=== PATIENT | female | born 1995 | race African-American/Black ===

== ENCOUNTER 2021-12-06 08:17 | Observation (INO) | payer OTHER, SELFPAY ==
[2021-12-06] VITALS (11 sets, daily range): BP systolic 111–215; BP diastolic 61–111; PULSE 92–103; RESP 16–24; TEMP 36.3–36.9; O2SAT 98–100; BMI 20.2
--- NOTE | 2021-12-06 | ECHO_ITS ---
Patient Info Name: Romy Cullen Age: 26 years : 1995 Gender: Female Ht: 61 in Wt: 110 lbs BSA: 1.47 m2 HR: 95 bpm BP: 173 / 99 mmHg Heart Rhythm: Sinus Rhythm Technical Quality: Fair Exam Date: 12/06/2021 11:47 AM Exam Location: [facility] Pulmonary Patient Status: Outpatient Admit Date: 12/06/2021 Staff Ordering Physician: Jacob James MD Refrigeration Mechanic: Anabell Oscar RDCS Attending Provider: Mariela Sellers Exam Type: CA echo doppler color flow Study Info Indications I31.3 - Pericardial effusion (noninflammatory) Complete two-dimensional, color flow and Doppler transthoracic echocardiogram is performed. Summary 1. Complete two-dimensional, color flow and Doppler transthoracic echocardiogram is performed. 2. Left ventricular chamber dimension is normal. 3. Left ventricular systolic function is normal, estimated at 60-65%. 4. There is moderately increased left ventricular wall thickness. 5. The left ventricular diastolic function is normal. 6. Left atrial chamber dimension is mildly enlarged. 7. There is trace mitral valve regurgitation. 8. There is trace tricuspid valve regurgitation. 9. Mild pulmonary hypertension, estimated pulmonary arterial systolic pressure is 49 mmHg. 10. There is trace pulmonic regurgitation. 11. There is small circumferential pericardial effusion. Left Ventricle Tissue doppler E/e' is not performed. Left ventricular chamber dimension is normal. Left ventricular systolic function is normal, estimated at 60-65%. There is moderately increased left ventricular wall thickness. The left ventricular diastolic function is normal. Right Ventricle Right ventricular systolic function is normal and with normal TAPSE 2.5 cm. Right ventricular chamber dimension is normal. Left Atria Left atrial chamber dimension is mildly enlarged. Right Atria Right atrial chamber dimension is normal. Aortic Valve The aortic valve is trileaflet. There is no aortic valve stenosis. There is no aortic valve regurgitation. Pulmonic Valve There is trace pulmonic regurgitation. Mitral Valve There is no mitral valve stenosis. There is trace mitral valve regurgitation. Tricuspid Valve There is trace tricuspid valve regurgitation. Mild pulmonary hypertension, estimated pulmonary arterial systolic pressure is 49 mmHg. Pericardium/Pleural No cardiac tamponade. There is small circumferential pericardial effusion. Inferior Vena Cava Normal inferior vena cava with >50% collapse upon inspiration consistent with normal right atrial pressure, 5 mmHg. Aorta The aortic root size at the sinus of Valsalva is normal. Left Ventricular Outflow Tract Name Value Normal LVOT 2D LVOT Diameter 1.7 cm LVOT Doppler LVOT Peak Gradient 5 mmHg LVOT Mean Gradient 2 mmHg LVOT VTI 20 cm LVOT VTI/AV VTI Ratio 0.6 LVOT Stroke Volume 47 ml LVOT CO 4.2 l/min LVOT CI
--- NOTE | ~2021-12-06 | XR_ITS ---
EXAMINATION: XR chest 2V 12/06/2021 13:44 INDICATION: Shortness of breath. Pericardial effusion. PROCEDURE: 2 view chest COMPARISON: CT dated 12/06/2020. FINDINGS: The lungs are clear. The cardiomediastinal silhouette is within normal limits. There are no pleural effusions. There is no pneumothorax suspected. IMPRESSION: 1: NO ACUTE CARDIOPULMONARY DISEASE. Reviewed, dictated and finalized at location A.
--- NOTE | ~2021-12-06 | CT_ITS ---
EXAMINATION: CT abdomen pelvis wo con DATE: 12/06/2021 09:23 INDICATION: Epigastric pain TECHNIQUE: Computed tomography (CT) of the abdomen and pelvis was performed without intravenous contr ast. The dose-length product was 170.55 mGy-cm. Automated exposure control and iterative reconstructi on technique were employed. COMPARISON: CT dated 03/19/2019. FINDINGS: Lung bases are unremarkable. Moderate pericardial effusion. Cardiomegaly. Small left pleura l effusion. The liver, spleen, pancreas, adrenal glands and kidneys are unremarkable. There are multiple calcific ations in the right pelvis which are likely outside the urinary tract. These may represent lymph node calcifications. Bladder wall is diffusely thickened, consistent with cystitis. There is a 2.8 cm rig ht adnexal cyst, possibly ovarian. No free air. Mild diffuse subcutaneous edema. No acute osseous abn ormality. IMPRESSION: 1. Moderate pericardial effusion. 2: Small left pleural effusion. 3: Diffuse abnormal bladder wall thickening, suspicious for cystitis. 4: Right adnexal cyst measuring 2.8 cm, possibly ovarian. 5: Right pelvic calcifications, possibly lymph node calcifications. These are likely outside the urin janeth tract, although urinary stones cannot be excluded. No significant hydronephrosis. Reviewed, dictated and finalized at location A. IMPRESSION: 1. Moderate pericardial effusion. 2: Small left pleural effusion. 3: Diffuse abnormal bladder wall thickening, suspicious for cystitis. 4: Right adnexal cyst measuring 2.8 cm, possibly ovarian. 5: Right pelvic calcifications, possibly lymph node calcifications. These are l ikely outside the urinary tract, although urinary stones cannot be excluded. No significant hydronephrosis.
--- NOTE | ~2021-12-06 | US_ITS ---
US renal BI 12/06/2021 14:09 Procedure: Realtime transabdominal ultrasound of the kidneys and bladder. Indication: Proteinuria Comparison: No prior studies for comparison. Findings: Renal echotexture is normal bilaterally without hydronephrosis, contour deforming mass or r enal calculus. The right kidney measures 11.8 cm and left kidney measures 12.3 cm. Bladder wall is th ickened, suspicious for cystitis. Impression: 1: Lateral wall thickening, suspicious for cystitis. Clinically correlate with urinalysis. Reviewed, dictated and finalized at location A. Impression: 1: Lateral wall thickening, suspicious for cystitis. Clinically correlate with urinalysis.
[2021-12-06 08:57] LABS: Alanine Aminotransferase 9 U/L (6-35); Albumin Level 2.8 g/dL (3.5-5.1); Alkaline Phosphatase 90 U/L (38-126); Anion Gap 6 mmol/L (8-16); Aspartate Amino Transferase 19 U/L (14-36); Bilirubin,Total 0.3 mg/dL (0.2-1.3); Blood Urea Nitrogen 25 mg/dL (7-17); Calcium 8.7 mg/dL (8.4-10.2); Carbon Dioxide 24 mmol/L (22-30); Chloride 107 mmol/L (98-107); Estimated CRCL calculation 41 ml/min; Estimated Glomerular Filt Rate 55; Glucose 86 mg/dL (65-110); Potassium 3.9 mmol/L (3.4-5.0); Sodium 137 mmol/L (137-145)
[2021-12-06 09:03] LABS: Lipase < 10 U/L (23-300)
[2021-12-06 09:04] LABS: Appearance Urine Clear (Clear); Bilirubin Urine Negative (Negative); Blood Urine 2+ (Negative); Color Urine Yellow (Yellow); Glucose Urine UA 3+ mg/dL (Negative); Ketones Urine 1+ mg/dL (Negative); Leukocyte Esterase Ur Negative LEU/UL (Negative); Nitrate Urine Negative (Negative); Protein Urine 3+ mg/dL (Negative); Urobilinogen Urine 0.2 mg/dL (<2.0)
[2021-12-06 09:05] LABS: Basophils Percent Auto 0.6 % (0.2-1.2); Eosinophils Absolute Auto 0.1 K/mm3 (0-0.3); Eosinophils Percent Auto 0.8 % (0-4.4); Hematocrit 23.4 % (37.0-47.0); Hemoglobin 7.7 g/dL (12.0-15.0); Immature Granulocyte Absolute 0.02 K/mm3 (0.00-0.031); Immature Granulocyte Percent A 0.3 % (0-0.5); Lymphocytes Absolute Auto 2.34 K/mm3 (0.9-3.2); Lymphocytes Percent Auto 32.5 % (18.3-44.2); Mean Corpuscular HGB Conc 32.9 g/dl (32-36); Mean Corpuscular Hemoglobin 29.7 pg (26-34); Mean Corpuscular Volume 90.3 fl (80-100); Mean Platelet Volume 8.4 fl (7.4-10.4); Monocytes Absolute Auto 0.5 K/mm3 (0.1-0.6); Monocytes Percent Auto 6.7 % (2.6-8.5); Neutrophils Absolute Auto 4.3 K/mm3 (1.3-6.7); Neutrophils Percent Auto 59.1 % (45.5-73.1); Platelet Count Result 358 k/mm3 (150-375); Red Blood Count 2.59 M/mm3 (4.2-5.4); Red Cell Distribution Width 14.5 % (11.5-14.5); White Blood Count 7.2 K/mm3 (4.5-10.0)
[2021-12-06 09:13] LABS: Mucus Urine Rare /lpf; Squamous Epithelial Cell Urine Many /hpf (Few); Transitional Epi Cells Urine Rare /hpf (None Seen); WBC Urine 0-3 /hpf
[2021-12-06 09:14] LABS: Add Urine Microscopic? YES
[2021-12-06] MEDS: SODIUM CHLORIDE 0.9% IV 1,000 ML 150 ML IV CONT (09:37)
[2021-12-06] MEDS: MORPHINE SULFATE (*CRX) 4 MG/ML INJ IV PUSH (09:38)
[2021-12-06] MEDS: ONDANSETRON INJ 4 MG/2 ML VIAL IV PUSH (09:38)
[2021-12-06] MEDS: FAMOTIDINE 20 MG/2 ML VIAL IV PUSH (09:38)
--- NOTE | 2021-12-06 10:44 | ECG_ITS ---
Measurements Intervals [place] Rate: 98 P: 52 NH: 138 QRS: 46 QRSD: 76 T: 61 QT: 335 QTc: 428 Interpretive Statements SINUS RHYTHM NORMAL EKG NO PREVIOUS ECG AVAILABLE FOR COMPARISON Electronically Signed On 12-06-2021 16:31:54 CDT by Evelyn Cristina M.D.
--- NOTE | 2021-12-06 10:58 | ED.ABDPAIN ---
HPI - Abdominal Pain General Chief Complaint: Abdominal Pain Stated Complaint: Nausea and abd pain Time Seen by Provider: 12/06/21 08:20 Source: patient Mode of arrival: ambulatory Limitations: no limitations History of Present Illness HPI narrative: 26-year-old with a history of insulin-dependent diabetes, diabetic nephropathy here with complaints of upper abdominal pain since last night. She denies any nausea, vomiting or fever or chills. No history of alcohol or drug abuse. She denies any peptic ulcer disease. No blood in the stool or black-colored stool. MD elicited complaint: abdominal pain Pertinent past history: none Onset (ago): day(s) (1) Pain Consistency: constant Location: epigastric Severity: moderate Quality: aching Radiation: none Migration to: no migration Exacerbating factors: nothing Relieving factors: nothing Associated symptoms: denies other symptoms Related Data Home Medications Medication Instructions Recorded Confirmed amlodipine 10 mg tablet mg 12/06/21 Allergies Allergy/AdvReac Type Severity Reaction Status Date / Time aspirin Allergy Intermediate Other Verified 12/06/21 08:19 Review of Systems Review of Systems: All systems reviewed & are unremarkable except as noted in HPI and below Constitutional: Constitutional: Reports no additional constitutional complaints Eyes: Eyes: Reports no additional eye complaints ENT: Reports system reviewed and no additional complaints, except as documented Cardiovascular: Cardiovascular: Reports no additional cardiovascular complaints Respiratory: Respiratory: Reports no additional respiratory complaints Gastrointestinal: Gastrointestinal: Reports as per HPI Genitourinary: Genitourinary: Reports no additional female genitourinary complaints Musculoskeletal: Musculoskeletal: Reports no additional musculoskeletal complaints Integumentary/Breasts: Skin/Breast: Reports system reviewed and no additional complaints, except as docu Neurologic: Reports system reviewed and no additional complaints, except as documented Psychiatric: Psychiatric: Reports no additional psychiatric complaints Endocrine: Endocrine: Reports no additional endocrine complaints PMFSH Past Medical History Medical History (Updated 12/06/21 @ 11:08 by Jacob James MD) Type 1 diabetes mellitus Social History Social History Smoking status: Never smoker Alcohol intake: never Substance use: never Gender identity (if verbalized by the patient): Female Spiritual care concerns: No Agree to blood products: No Exam Narrative: GENERAL: Well-appearing, well-nourished, and in no acute distress. HEAD: Normocephalic, atraumatic. EYES: PERRLA and EOMI. puffy eyelids NECK: Supple. CHEST: Clear to auscultation. No respiratory distress. HEART: Regular rate and rhythm. No murmur heard. Normal peripheral pulses. ABDOMEN: Soft, tender in the epigastric area , nondistended, normal active bowel sounds. EXTREMITIES: Normal range of motion. No edema. SKIN: Warm, dry, no rash. NEURO: No focal deficits. Alert and oriented x3. PSYCH: Normal mood and affect. Course Course Emergency Course: Patient is feeling slightly better after IV morphine, Zofran and Pepcid. I have reviewed her lab work did mention to her about her kidney function, patient states that she is aware , she states that she has protein in the urine and I did mention about her fluid around the heart which she said she was aware of that as well and is scheduled to see cardiology at [facility] sometime next month. Patient agreed for admission. Discussed with cardiology will patient will be seen in consult Dr. Serrano accepted the patient Vital Signs Vital signs: Vital Signs Temperature 36.9 C 12/06/21 08:17 Pulse Rate 101 H 12/06/21 08:17 Respiratory Rate 16 12/06/21 08:17 Blood Pressure 132/86 12/06/21 08:17 Pulse Oximetry 100 12/06/21 0
[2021-12-06 11:20] LABS: Troponin I < 0.012 ng/mL (0.000-0.034)
[2021-12-06 11:29] LABS: INR 1.1; Prothrombin Time 13.8 Seconds (11.1-14.7)
--- NOTE | 2021-12-06 12:35 | PC.NURSE ---
This patient, Romy Cullen, was admitted to IMU Room 213-01. Patient/family oriented to hospital policies and general routines including ID bracelet, bed and alarms, visiting hours, pain management, procedures, bathroom and other care routines, personal items, smoking policy, room service/diet, and visiting hours. Information on how to activate the Rapid Response Team has been discussed. Patient/Family are encouraged to report perceived risks to care and to ask questions if they do not understand what they are told or what they should do.
[2021-12-06 12:45] LABS: Glucose Point of Care 140 mg/dl (65-105)
[2021-12-06 12:59] LABS: Hemoglobin A1C 8.3 % (<5.7)
--- NOTE | 2021-12-06 13:19 | PM.IMHP ---
H&P: HPI History of Present Illness Date/Time: 12/06/21 1250 Chief Complaint: Abdominal Pain Narrative: This 26 year old female patient with significant PMH of T1DM, HTN, and Diabetic Nephropathy presents to the ER with complaints of having acute abdominal pain. She notes that the pain is in the middle of her upper abdomen, is constant in duration and began last night. She describes it as an ache with associated nausea. In addition she also endorses that her eyes have been swollen for the past 2 days. She also acknowledges swelling of her extremities that comes and goes, currently they are not swollen she denies any chest pain or dyspnea. She denies any change in her urine output with the appearance of her urine. In the emergency room workup was started his significant for hemoglobin of 7.7 which is not normal for this patient. The review of previous hemoglobin values from November 26, 2018 she was 12.0, 03/19/2019 she was 11.8, 03/21/2019 she was 9.2 and today she is 7.7. In addition patient's renal function has declined. He her baseline renal function in her history demonstrates a creatinine of 0.4, today she is 1.4 with her creatinine and BUN is 25. Her Urine Protein is 3+, where it was negative back in 03/19/2019, urine ketones is 1+, where it was negative in 2019, and she has 5-9 casts in her urine that was negative on previous UA's. Her current UA is not indicative of an acute UTI. CT of the abdomen pelvis demonstrated a moderate pericardial effusion with small left pleural effusion and diffuse abnormal bladder wall thickening suspicious for cystitis as well as a right adnexal cyst and right pelvic calcifications. Patient states that she is aware of her pericardial effusion and had an upcoming appointment with a customer service representative teacher at [facility] to discuss. In addition she was aware of increased proteinuria, however and she sees creative intern Dr. Castaneda at [facility]. As patient's urinalysis does not support the diagnosis of acute cystitis at this time imaging from 2019 of the abdomen and pelvis was reviewed that also demonstrated an abnormal bladder wall thickening at that time as well. She was currently being treated for an acute urinary tract infection then, however her vital signs are not indicating acute infection currently. 24 hour urine is ordered as well as urine culture. Specifically on CT of abdomen pelvis there are no pancreatic findings to suggest acute pancreatitis. Liver enzymes, bilirubin and lipase were all normal. At the time of this assessment, the patient denies any CP, dyspnea, V/D, headache, dizziness or lightheadedness. Review of Systems Review of Systems: All systems reviewed & are unremarkable except as noted in HPI and below PMFSH Past Medical History Medical History (Updated 12/06/21 @ 13:43 by OSWALDO Helm) Type 1 diabetes mellitus Social History Social History Smoking status: Never smoker Alcohol intake: never Substance use: never Gender identity (if verbalized by the patient): Female Spiritual care concerns: No Agree to blood products: No Meds Home Medications and Allergies Home Medications Medication Instructions Recorded Confirmed Type acetaminophen 325 mg tablet (Mapap 650 mg PO Q4H PRN Mild Pain (1-3) 03/21/19 12/06/21 Rx (acetaminophen)) Or Fever #60 tabs insulin glargine 100 unit/mL (3 12 unit (0.12 mL) subcut HS #3 mL 03/21/19 12/06/21 Rx mL) subcutaneous pen (Basaglar KwikPen U-100 Insulin) insulin lispro 100 unit/mL 1 sliding scale dose subcut 03/21/19 12/06/21 Rx subcutaneous solution USEASDIRECTD #3 mL insulin lispro 100 unit/mL 3 unit (0.03 mL) subcut TIDWM #3 mL 03/21/19 12/06/21 Rx subcutaneous solution insulin syringe needleless 1 mL #100 ea 03/21/19 12/06/21 Rx amlodipine 10 mg tablet 10 mg PO DAILY 12/06/21 12/06/21 History duloxetine 30 mg capsule,delayed 30 mg PO DAILY 12/06/21
[2021-12-06] MEDS: hydrALAZINE HCL 20 MG/ML VIAL IV PUSH (13:24)
[2021-12-06] MEDS: SODIUM CHLORIDE 0.9% IV 1,000 ML 100 ML IV CONT (13:24)
[2021-12-06] MEDS: INSULIN ASPART (*BKC) 100 UNITS/ML SUB-Q (13:24)
[2021-12-06] MEDS: HYDROcodone/acetaminophen (*CRX) 5-325 MG TABLET 1 TAB PO ×2 (14:09→20:27)
--- NOTE | 2021-12-06 15:17 | PM.CNCAR ---
Assessment and Plan Assessment and plan (1) Pericardial effusion: Code(s): I31.3 - Pericardial effusion (noninflammatory) Status: Acute Assessment and Plan: Pericardial effusion noted in September at [facility] in [place]. Workup was unremarkable and the effusion was thought to be related to 3rd spacing from her nephrotic syndrome. Follow-up echo in October showed some improvement, down to mild to moderate in size. No evidence of tamponade at that time nor at this time clinically. However it echo may be helpful; she does have a heart murmur which may be a new valve problem, or perhaps related to her anemia and hyperdynamic state. No history of valve disease. (2) Abdominal pain: Code(s): R10.9 - Unspecified abdominal pain Status: Acute Assessment and Plan: Abdominal pain, history of gastroparesis. (3) Hypertension: Code(s): I10 - Essential (primary) hypertension Status: Acute Assessment and Plan: Not well controlled, may be worse now because of her pain. Continue usual home medicines with metoprolol, losartan (4) Anemia: Code(s): D64.9 - Anemia, unspecified Status: Acute Assessment and Plan: Significant anemia noted. (5) Uncontrolled type 1 diabetes mellitus with hyperglycemia, with long-term current use of insulin: Code(s): E10.65 - Type 1 diabetes mellitus with hyperglycemia Status: Acute (6) Diabetic nephropathy: Code(s): E11.21 - Type 2 diabetes mellitus with diabetic nephropathy Status: Acute (7) Gastroparesis: Code(s): K31.84 - Gastroparesis Status: Acute Assessment and Plan: History of Present Illness History of Present Illness Consult date/time: 12/06/21 15:17 Reason For Visit: Abdominal Pain/Ericardial Effusion Narrative: Romy Cullen is a 26-year-old female whom I was asked to see at the request of Dr. James for my advice and opinion regarding her pericardial effusion, in consultation. The patient has a history of insulin-dependent diabetes with nephropathy and hypertension. The patient came to the emergency room today with abdominal pain. She has a vague historian. CT scan of the abdomen and pelvis showed possible cystitis, but also moderate pericardial effusion and a small pleural effusion. She has chronic anemia which has worsened this admission. She was admitted for further observation and evaluation. Blood pressures are running 180-215/106-111 and heart rate is running in the 90s. She is on room air. The patient denies any fever, recent viral infections, TB, rheumatoid arthritis, lupus, or medications known to cause pericardial effusion. No history of any heart attacks or heart failure. No chest pain or shortness of breath. Records from [facility] EHR were found in reviewed. The patient has a history of poorly controlled type 1 diabetes complicated by gastroparesis and multiple admissions for DKA to [facility]. The patient was found to have a moderate-sized pericardial effusion without tamponade on her admission to [facility] in July 2021 for abdominal pain. Workup by Dr. Sultan Han was fairly unremarkable; TSH was normal, sed rate was 22, rheumatoid factor 10, AISLINN positive at 1:160 and 1:80, speckled pattern of uncertain significance. QuantiFERON TB gold test was ordered. It was thought the pericardial effusion was related to 3rd spacing from her nephrotic syndrome. Was admitted to [place] on 11/27/2021 with metabolic encephalopathy and a blood sugar of 1046. There was no DKA. Her creatinine was up to 2.1. During that admission she was evaluated by Cardiology for some brief nonsustained ventricular tachycardia which they felt was related to metabolic and electrolyte abnormalities. On revaluation the
[2021-12-06 16:28] LABS: Glucose Point of Care 123 mg/dl (65-105)
[2021-12-06 20:01] LABS: Transferrin 135 mg/dL (206-381)
[2021-12-06] MEDS: INSULIN GLARGINE (*BKC) 100 UNITS/ML 12 UNITS SUB-Q (20:27)
[2021-12-06] MEDS: hydrALAZINE HCL 20 MG/ML VIAL 10 MG IV PUSH (20:29)
[2021-12-06 20:36] LABS: Glucose Point of Care 261 mg/dl (65-105)
[2021-12-06 21:00] LABS: Folic Acid 18.9 ng/mL (2.76->20)
[2021-12-06] MEDS: MORPHINE SULFATE (*CRX) 2 MG/ML INJ IV PUSH (22:01)
[2021-12-07] VITALS (15 sets, daily range): BP systolic 105–192; BP diastolic 60–112; PULSE 84–99; RESP 14–20; TEMP 36.2–36.7; O2SAT 97–99
[2021-12-07] MEDS: SODIUM CHLORIDE 0.9% IV 1,000 ML 100 ML IV CONT ×3 (00:12→20:28)
[2021-12-07 05:26] LABS: Basophils Percent Auto 0.5 % (0.2-1.2); Eosinophils Absolute Auto 0.1 K/mm3 (0-0.3); Eosinophils Percent Auto 1.5 % (0-4.4); Hemoglobin 7.9 g/dL (12.0-15.0); Immature Granulocyte Absolute 0.02 K/mm3 (0.00-0.031); Immature Granulocyte Percent A 0.3 % (0-0.5); Lymphocytes Absolute Auto 2.23 K/mm3 (0.9-3.2); Lymphocytes Percent Auto 30.1 % (18.3-44.2); Mean Corpuscular HGB Conc 31.6 g/dl (32-36); Mean Corpuscular Hemoglobin 29.6 pg (26-34); Mean Corpuscular Volume 93.6 fl (80-100); Mean Platelet Volume 8.5 fl (7.4-10.4); Monocytes Absolute Auto 0.5 K/mm3 (0.1-0.6); Monocytes Percent Auto 6.2 % (2.6-8.5); Neutrophils Absolute Auto 4.6 K/mm3 (1.3-6.7); Neutrophils Percent Auto 61.4 % (45.5-73.1); Platelet Count Result 365 k/mm3 (150-375); Red Blood Count 2.67 M/mm3 (4.2-5.4); Red Cell Distribution Width 14.9 % (11.5-14.5); White Blood Count 7.4 K/mm3 (4.5-10.0)
[2021-12-07 05:44] LABS: Alanine Aminotransferase 6 U/L (6-35); Albumin Level 2.6 g/dL (3.5-5.1); Alkaline Phosphatase 79 U/L (38-126); Anion Gap 5 mmol/L (8-16); Aspartate Amino Transferase 25 U/L (14-36); Bilirubin,Total 0.2 mg/dL (0.2-1.3); Blood Urea Nitrogen 24 mg/dL (7-17); Calcium 7.9 mg/dL (8.4-10.2); Carbon Dioxide 21 mmol/L (22-30); Chloride 110 mmol/L (98-107); Estimated CRCL calculation 38 ml/min; Estimated Glomerular Filt Rate 50; Glucose 173 mg/dL (65-110); Magnesium 1.9 mg/dL (1.6-2.3); Potassium 3.9 mmol/L (3.4-5.0); Sodium 136 mmol/L (137-145)
[2021-12-07 06:10] LABS: Lipase < 10 U/L (23-300)
[2021-12-07 07:23] LABS: Iron 56 ug/dL (37-170)
[2021-12-07 07:35] LABS: Percent Iron Saturation 34 % (20-50)
[2021-12-07 07:57] LABS: Thyroid Stimulating Hormone Reflex 0.789 uIU/mL (0.465-4.68)
[2021-12-07] MEDS: HYDROcodone/acetaminophen (*CRX) 7.5-325 MG TABLET 1 TAB PO ×2 (08:22→17:15)
[2021-12-07] MEDS: LOSARTAN POTASSIUM 25 MG TABLET PO (08:23)
[2021-12-07] MEDS: PRAVASTATIN SODIUM 20 MG TABLET 40 MG PO (08:23)
[2021-12-07] MEDS: amLODIPine BESYLATE 5 MG TABLET 10 MG PO (08:24)
[2021-12-07] MEDS: FAMOTIDINE 20 MG TABLET PO (08:24)
[2021-12-07] MEDS: FERROUS SULFATE 324 MG TABLET PO (08:24)
[2021-12-07] MEDS: DULoxetine HCL 30 MG CAPSULE.DR PO (08:25)
[2021-12-07] MEDS: PANTOPRAZOLE SODIUM IV 40 MG VIAL IV PUSH (08:25)
[2021-12-07 08:31] LABS: Glucose Point of Care 165 mg/dl (65-105)
[2021-12-07] MEDS: hydrALAZINE HCL 20 MG/ML VIAL 10 MG IV PUSH (08:36)
[2021-12-07] MEDS: INSULIN ASPART (*BKC) 100 UNITS/ML SUB-Q ×2 (09:22→17:15)
--- NOTE | 2021-12-07 10:19 | PM.IMPN ---
Progress Note: A&P Assessment and Plan (1) Uncontrolled type 1 diabetes mellitus with hyperglycemia, with long-term current use of insulin: Code(s): E10.65 - Type 1 diabetes mellitus with hyperglycemia Status: Acute Assessment and Plan: Insulin Lispro sliding scale, Accu-checks qAc and HS and Hold oral hypoglycemics 8 units of Lantus was added to patient's medication regimen HgbA1c 8.3, significantly improve since 2019 (2) Abdominal pain: Code(s): R10.9 - Unspecified abdominal pain Status: Acute Assessment and Plan: - CT of abdomen and pelvis as noted. - Pain is epigastric in nature. - PRN pain meds with [place], and PRN Anti-emetics with Zofran. -- checking for H pylori I and administered a GI cocktail start PPI and continue famotidine (3) Pericardial effusion: Code(s): I31.3 - Pericardial effusion (noninflammatory) Status: Acute Assessment and Plan: - As evidenced by CT scan results. - CXR reviewed, no acute cardiopulmonary disease - ECHO ordered and pending. - Consult cardiology. - Lasix 40 mg IVP daily. - Pt. states she was told about this effusion previously and was referred to a Professor Of Family Medicine at [place] (4) Bladder wall thickening: Code(s): N32.89 - Other specified disorders of bladder Status: Acute Assessment and Plan: - As evidenced on CT of abdomen and pelvis today. - There was also thickening on CT of abdomen and pelvis view of bladder in 2019 when she was being treated for an acute UTI. - pending urine culture, patient has had group B strep in the past. Start empirically treating to with rocephin, de-escalate when appropriate, pending culuture (5) Anemia: Code(s): D64.9 - Anemia, unspecified Status: Acute Assessment and Plan: - Acute on chronic, suspicious of etiology being chronic disease in nature. - Hgb 10/2017: 12.0, 03/19/2019: 11.8, 03/21/2019: 9.2, and then today 7.7. - No acute or overt bleeding identified - Check stool for occult blood. - Monitor labs and vitals and consider Transfusion if <7.0. - Anemia labs are ordered. Consider Hematology consult (6) Diabetic nephropathy: Code(s): E11.21 - Type 2 diabetes mellitus with diabetic nephropathy Status: Acute Assessment and Plan: - Proteinuria of 3+, albumin 2.8, total protein 6.0. - New symptoms according to the patient of edema around her eyes over the past couple of days, and also her legs, although they are not currently swollen. This is concerning for the differential diagnosis of Nephrotic Syndrome. - Baseline renal function that we have in EMR is a creatinine of 0.40, and today it is 1.40 with a BUN of 25. - Pt. is receiving IVF of NS at 100 ml/hr, and she is also receiving Lasix 40 mg IVP as her CT demonstrated a pleural effusion, but her CXR does not. - No peripheral edema with exception of periocular regions bilaterally. - 24 hour urine protein is ordered. - Renal US reviewed - Nephrology is consulted and we appreciate their co-management and/or recommendations for continuation of care. - Will follow daily labs and VS. - Pt's Energy Management Specialist is Dr. Castaneda at [place], and she states she was told that she had Protein in her urine, but she did not have the symptoms of the periocular edema. (7) Hypertension: Code(s): I10 - Essential (primary) hypertension Status: Acute Assessment and Plan: - Increase likely secondary to Nephritis vs. nephropathy vs. pain vs. renal failure - Continue home medications of Amlodipine and Losartan. - PRN Hydralazine is ordered with parameters of SBP>180 and DBP>90. Subjective Date/time seen: 12/07/21 10:19 Patient was evaluated this morning at bedside to continue complain of epigastric pain. Ordered H pylori I and GI cocktail. Patient reported that the [place] and Tylenol did not help her pain. Patient does not complain of lower abdominal pain. She endorses mild nausea. Renal ultrasoun
[2021-12-07 10:53] LABS: Beta HCG Quantitative < 2.39 mIU/ML
--- NOTE | 2021-12-07 10:54 | PM.PNCARD ---
Progress Note: A&P Assessment and Plan (1) Pericardial effusion: Code(s): I31.3 - Pericardial effusion (noninflammatory) Status: Acute Assessment and Plan: Pericardial effusion noted in September at [facility] in [place]. Workup was unremarkable and the effusion was thought to be related to 3rd spacing from her nephrotic syndrome. Or perhaps it is idiopathic. No tamponade Follow-up echo in October showed some improvement, down to mild to moderate in size. Echo here shows it is now mild in severity. No further workup needed. Will discontinue Lasix since the patient does not appear volume overloaded, she has possible acute kidney injury and the effusion seems to be resolving on its own. (2) Abdominal pain: Code(s): R10.9 - Unspecified abdominal pain Status: Acute Assessment and Plan: Abdominal pain, history of gastroparesis. Not eating well but getting IV fluids, 100 cc/hour. (3) Hypertension: Code(s): I10 - Essential (primary) hypertension Status: Acute Assessment and Plan: Not well controlled, may be worse now because of her pain. Does have some mild left ventricular enlargement and hypertrophy so important to have good long-term control of blood pressure. Continue usual home medicines with metoprolol, losartan (4) Anemia: Code(s): D64.9 - Anemia, unspecified Status: Acute Assessment and Plan: Significant anemia noted. (5) Uncontrolled type 1 diabetes mellitus with hyperglycemia, with long-term current use of insulin: Code(s): E10.65 - Type 1 diabetes mellitus with hyperglycemia Status: Acute (6) Diabetic nephropathy: Code(s): E11.21 - Type 2 diabetes mellitus with diabetic nephropathy Status: Acute (7) Gastroparesis: Code(s): K31.84 - Gastroparesis Status: Acute Assessment and Plan: Long history of diabetic gastroparesis (8) Heart murmur: Code(s): R01.1 - Cardiac murmur, unspecified Status: Acute Assessment and Plan: Echo showed no significant valve disease. Perhaps prominent because of patient's anemia and mildly hyperdynamic state. Plan Will sign off. Please let us know for can be of any further assistance. Subjective Date/time seen: Follow-up for pericardial effusion. A moderate pericardial effusion was incidentally found during hospitalization at [facility] in [place] in September, no tamponade, workup unremarkable, effusion was thought to be secondary to nephrotic syndrome and 3rd spacing. A follow-up echo in October done elsewhere showed some improvement, effusion was down to mild to moderate in severity. Admitted here for abdominal pain. Long history of gastroparesis and poorly controlled type 1 diabetes. Date of service 12/07/21 10:54: Patient says she is ?so-so. ? Still with abdominal discomfort though not as bad, eating a few bites but not much. Blood pressure up and down. Remains on room air. Getting feels IV fluids 100 cc/hour and Lasix. Creatinine today slightly higher, 1.5. Echo yesterday showed that the pericardial effusion appeared small. Review of Systems Constitutional: Constitutional: Denies fever(s) Cardiovascular: Cardiovascular: Denies chest pain, Denies pedal edema, Reports lightheadedness and Denies dyspnea Respiratory: Respiratory: Denies chest congestion and Denies dyspnea Gastrointestinal: Gastrointestinal: Reports abdominal pain, Denies hematochezia, Denies nausea and Denies vomiting Musculoskeletal: Musculoskeletal: Reports no additional musculoskeletal complaints Integumentary/Breasts: Skin/Breast: Reports system reviewed and no additional complaints, except as docu Neurologic: Reports system reviewed and no additional complaints, except as documented, Denies behavioral changes and Denies confusion Psychiatric: Psychiatric: Denie
[2021-12-07] MEDS: BELLADONNA ALK/PHENOB ELIX 10 ML, MAG HYDROX/ALUMINUM HYD/SIMETH 30 ML, LIDOCAINE HCL 2... PO (11:14)
[2021-12-07] MEDS: ONDANSETRON INJ 4 MG/2 ML VIAL IV PUSH ×3 (11:25→21:46)
[2021-12-07 12:25] LABS: Glucose Point of Care 135 mg/dl (65-105)
--- NOTE | 2021-12-07 16:01 | PC.NURSE ---
ORDERS to transfer to med / tele- report given to Sarah Beth ANN - pt transferred to room 312 via /c accompanied by staff- 24 hr urine continues- will be completed at 1745-belongings sent with pt
--- NOTE | 2021-12-07 16:29 | PM.CNNEP ---
Assessment and Plan Assessment and plan (1) Chronic kidney disease: Code(s): N18.9 - Chronic kidney disease, unspecified Status: Chronic Assessment and Plan: secondary to diabetes previous evaluation demonstrated 1500mg of proteinuria follow with Dr. Timmy Castillo (in [place]) creatinine about a month ago was 1.3mg/dl so suspect current creatinine is more a manifestation of disease progression continue supportive therapy (2) Proteinuria: Code(s): R80.9 - Proteinuria, unspecified Status: Chronic Assessment and Plan: has 1500mg in April 2021 labs given history, suspect this has progressed to possibly nephrotic range 24hr urine collection in progress would maximize ARB/KENYON-I therapy as tolerated by hemodynamics this may be indeed contributing to her periorbital edema....although unclear if diuretics will really help this given location of swelling (3) Pericardial effusion: Code(s): I31.3 - Pericardial effusion (noninflammatory) Status: Acute Assessment and Plan: history reviewed repeat Echo noted Cardiology recommendations noted (4) Abdominal pain: Code(s): R10.9 - Unspecified abdominal pain Status: Acute Assessment and Plan: Abdominal pain, history of gastroparesis. (5) Hypertension: Code(s): I10 - Essential (primary) hypertension Status: Acute Assessment and Plan: reasonable control would titrate ARB therapy as tolerated given her DM and proteinuria (6) Anemia: Code(s): D64.9 - Anemia, unspecified Status: Acute Assessment and Plan: seems to be out of proportion for her CKD follow H/H (7) Diabetes: Code(s): E11.9 - Type 2 diabetes mellitus without complications Status: Acute Assessment and Plan: follow accuchecks glycemic control Will continue to follow. History of Present Illness Reason for Consult Consult date: 12/08/21 Reason for consult: chronic renal failure Chief Complaint Chief complaint: Abdominal Pain/Ericardial Effusion History of Present Illness Narrative: The patient is a 26-year-old female with a past medical history as outlined below who presented to [facility] Emergency room with complaints of abdominal pain. She stated the pain was localized to the middle of her upper abdomen and seems to be somewhat constant and began on the night prior to admission. She described as a dull ache and associated with nausea. She also reports some increased swelling in her lower extremities that seems to come and go but there is more swelling/edema localized around her eyes for the past few days. given these constellation of symptoms, she presented to the ER for further evaluation Workup and evaluation emergency room demonstrated the patient to be hemodynamically stable although her blood pressure was somewhat elevated although the issue of her abdominal pain was thought to be contributing to this issue. Routine blood test demonstrated relative anemia with a hemoglobin of 7.7 and her chemistry showed an elevated BUN and creatinine above her baseline levels noted to years ago. Her urinalysis was significant for 3+ protein and 1+ ketones as well. CT scan of the abdomen and pelvis given her abdominal pain demonstrate a moderate pericardial effusion and some diffuse bladder wall thickening suspicious for cystitis. Given these laboratory findings and the change in comparison to her previous values as well as the symptoms that led to her presentation to the ER in the 1st place, she was admitted the hospital for further evaluation and therapy. Since her admission, she has been seen by Cardiology with a repeat echocardiogram that shows that the pericardial effusion is not as large as evident on the CT scan imaging and there is no tamponade physiology. Her IV diuretics have since been discontinued. Her periorbital swelling / edema still i
[2021-12-07 17:08] LABS: Glucose Point of Care 149 mg/dl (65-105)
[2021-12-07 19:11] LABS: Total Volume 24 Hour Urine 700 ml
[2021-12-07 19:39] LABS: Total Protein Urine 24 Hr 4200 mg/24hr (28-141); Total Protein Urine Random > 600 mg/dL
[2021-12-07] MEDS: INSULIN GLARGINE (*BKC) 100 UNITS/ML 12 UNITS SUB-Q (20:28)
[2021-12-07 20:42] LABS: Glucose Point of Care 162 mg/dl (65-105)
[2021-12-08] VITALS: PULSE 92
[2021-12-08 04:00] VITALS: PULSE 88
[2021-12-08] MEDS: hydrALAZINE HCL 20 MG/ML VIAL 10 MG IV PUSH (05:58)
[2021-12-08] MEDS: ONDANSETRON INJ 4 MG/2 ML VIAL IV PUSH (05:59)
[2021-12-08] MEDS: HYDROcodone/acetaminophen (*CRX) 7.5-325 MG TABLET 1 TAB PO (05:59)
[2021-12-08 06:00] VITALS: BP 163/104; PULSE 103; RESP 16; TEMP 36.6; O2SAT 97
[2021-12-08] MEDS: SODIUM CHLORIDE 0.9% IV 1,000 ML 100 ML IV CONT (06:00)
--- NOTE | 2021-12-08 06:47 | PM.DS ---
DS: Admitting Diagnosis Discharge Date 12/08/2021 Admitting Diagnosis nausea Pericardial effusion Abdominal pain DS: Discharge Diagnosis Discharge Diagnosis (1) Uncontrolled type 1 diabetes mellitus with hyperglycemia, with long-term current use of insulin: Code(s): E10.65 - Type 1 diabetes mellitus with hyperglycemia Status: Acute Assessment and Plan: Insulin Lispro sliding scale, Accu-checks qAc and HS and Hold oral hypoglycemics 8 units of Lantus was added to patient's medication regimen HgbA1c 8.3, significantly improve since 2019 (2) Abdominal pain: Code(s): R10.9 - Unspecified abdominal pain Status: Acute Assessment and Plan: - CT of abdomen and pelvis as noted. - Pain is epigastric in nature. - PRN pain meds with Artemas, and PRN Anti-emetics with Zofran. -- checking for H pylori I and administered a GI cocktail start PPI and continue famotidine (3) Pericardial effusion: Code(s): I31.3 - Pericardial effusion (noninflammatory) Status: Acute Assessment and Plan: - As evidenced by CT scan results. - CXR reviewed, no acute cardiopulmonary disease - ECHO ordered and pending. - Consult cardiology. - Lasix 40 mg IVP daily. - Pt. states she was told about this effusion previously and was referred to a Marine Oiler at [facility] (4) Bladder wall thickening: Code(s): N32.89 - Other specified disorders of bladder Status: Acute Assessment and Plan: - As evidenced on CT of abdomen and pelvis today. - There was also thickening on CT of abdomen and pelvis view of bladder in 2019 when she was being treated for an acute UTI. - pending urine culture, patient has had group B strep in the past. Start empirically treating to with rocephin, de-escalate when appropriate, pending culuture (5) Anemia: Code(s): D64.9 - Anemia, unspecified Status: Acute Assessment and Plan: - Acute on chronic, suspicious of etiology being chronic disease in nature. - Hgb 10/2017: 12.0, 03/19/2019: 11.8, 03/21/2019: 9.2, and then today 7.7. - No acute or overt bleeding identified - Check stool for occult blood. - Monitor labs and vitals and consider Transfusion if <7.0. - Anemia labs are ordered. Consider Hematology consult (6) Diabetic nephropathy: Code(s): E11.21 - Type 2 diabetes mellitus with diabetic nephropathy Status: Acute Assessment and Plan: - Proteinuria of 3+, albumin 2.8, total protein 6.0. - New symptoms according to the patient of edema around her eyes over the past couple of days, and also her legs, although they are not currently swollen. This is concerning for the differential diagnosis of Nephrotic Syndrome. - Baseline renal function that we have in EMR is a creatinine of 0.40, and today it is 1.40 with a BUN of 25. - Pt. is receiving IVF of NS at 100 ml/hr, and she is also receiving Lasix 40 mg IVP as her CT demonstrated a pleural effusion, but her CXR does not. - No peripheral edema with exception of periocular regions bilaterally. - 24 hour urine protein is ordered. - Renal US reviewed - Nephrology is consulted and we appreciate their co-management and/or recommendations for continuation of care. - Will follow daily labs and VS. - Pt's Wetland Scientist is Dr. Castaneda at [facility], and she states she was told that she had Protein in her urine, but she did not have the symptoms of the periocular edema. (7) Hypertension: Code(s): I10 - Essential (primary) hypertension Status: Acute Assessment and Plan: - Increase likely secondary to Nephritis vs. nephropathy vs. pain vs. renal failure - Continue home medications of Amlodipine and Losartan. - PRN Hydralazine is ordered with parameters of SBP>180 and DBP>90. DS: Summary Hospital Course Reason for hospitalization: pericardial effusion Abdominal pain Hospital Course: patient is a 26-year-old female with a past medical history of diabetes mellitus type
[2021-12-08 06:48] VITALS: BP 139/81
[2021-12-08 07:22] LABS: Basophils Percent Auto 0.3 % (0.2-1.2); Eosinophils Absolute Auto 0.1 K/mm3 (0-0.3); Eosinophils Percent Auto 1.1 % (0-4.4); Hematocrit 24.8 % (37.0-47.0); Hemoglobin 7.8 g/dL (12.0-15.0); Immature Granulocyte Absolute 0.01 K/mm3 (0.00-0.031); Immature Granulocyte Percent A 0.2 % (0-0.5); Lymphocytes Absolute Auto 0.86 K/mm3 (0.9-3.2); Lymphocytes Percent Auto 13.8 % (18.3-44.2); Mean Corpuscular HGB Conc 31.5 g/dl (32-36); Mean Corpuscular Hemoglobin 29.1 pg (26-34); Mean Corpuscular Volume 92.5 fl (80-100); Mean Platelet Volume 8.5 fl (7.4-10.4); Monocytes Absolute Auto 0.4 K/mm3 (0.1-0.6); Monocytes Percent Auto 6.3 % (2.6-8.5); Neutrophils Absolute Auto 4.9 K/mm3 (1.3-6.7); Neutrophils Percent Auto 78.3 % (45.5-73.1); Platelet Count Result 342 k/mm3 (150-375); Red Blood Count 2.68 M/mm3 (4.2-5.4); Red Cell Distribution Width 14.6 % (11.5-14.5); White Blood Count 6.2 K/mm3 (4.5-10.0)
[2021-12-08 07:29] LABS: Albumin Level 2.4 g/dL (3.5-5.1); Alkaline Phosphatase 73 U/L (38-126); Anion Gap 6 mmol/L (8-16); Aspartate Amino Transferase 20 U/L (14-36); Bilirubin,Total 0.1 mg/dL (0.2-1.3); Blood Urea Nitrogen 23 mg/dL (7-17); Calcium 8.1 mg/dL (8.4-10.2); Carbon Dioxide 19 mmol/L (22-30); Chloride 110 mmol/L (98-107); Estimated CRCL calculation 34 ml/min; Estimated Glomerular Filt Rate 44; Glucose 221 mg/dL (65-110); Potassium 3.9 mmol/L (3.4-5.0); Sodium 135 mmol/L (137-145)
[2021-12-08 07:48] LABS: Glucose Point of Care 194 mg/dl (65-105)
[2021-12-08 08:00] LABS: Alanine Aminotransferase < 6 U/L (6-35)
[2021-12-08] MEDS: amLODIPine BESYLATE 5 MG TABLET 10 MG PO (09:10)
[2021-12-08] MEDS: INSULIN ASPART (*BKC) 100 UNITS/ML SUB-Q (09:10)
[2021-12-08] MEDS: LOSARTAN POTASSIUM 25 MG TABLET PO (09:10)
[2021-12-08] MEDS: PANTOPRAZOLE 40 MG TABLET PO (09:11)
[2021-12-08] MEDS: FAMOTIDINE 20 MG TABLET PO (09:11)
[2021-12-08] MEDS: FERROUS SULFATE 324 MG TABLET PO (09:11)
[2021-12-08] MEDS: DULoxetine HCL 30 MG CAPSULE.DR PO (09:11)
[2021-12-08] MEDS: PRAVASTATIN SODIUM 20 MG TABLET 40 MG PO (09:11)
== END 2021-12-08 10:37 | disposition home health service (06) ==
LOC: ANHED 11:08 → ANHIMU 11:27 → ANH3MEDSUR 12-08 06:47 → ANHIMU 12-12 14:11
PROVIDERS: Nurse Practitioner Adult Health; Admitting Provider Internal Medicine; Emergency Provider Family Medicine; PCP Emergency Medicine; Visit Provider Nurse Practitioner Family
DX: I31.3 Pericardial effusion (noninflammatory) (principal); R10.13 Epigastric pain; I12.9 Hypertensive chronic kidney disease with stage 1 through stage 4 chronic kidney disease, or unspecified chronic kidney disease; N18.9 Chronic kidney disease, unspecified; E10.65 Type 1 diabetes mellitus with hyperglycemia; E10.43 Type 1 diabetes mellitus with diabetic autonomic (poly)neuropathy; E10.21 Type 1 diabetes mellitus with diabetic nephropathy; E10.22 Type 1 diabetes mellitus with diabetic chronic kidney disease; R80.9 Proteinuria, unspecified; K31.84 Gastroparesis; N20.0 Calculus of kidney; D63.1 Anemia in chronic kidney disease; N32.89 Other specified disorders of bladder; D62 Acute posthemorrhagic anemia; J90 Pleural effusion, not elsewhere classified; N83.201 Unspecified ovarian cyst, right side; N94.9 Unspecified condition associated with female genital organs and menstrual cycle; R01.1 Cardiac murmur, unspecified; Z79.1 Long term (current) use of non-steroidal anti-inflammatories (NSAID); Z79.4 Long term (current) use of insulin; Z79.899 Other long term (current) drug therapy
CPT/HCPCS: 36415; 71046; 74176; 76775; 80053; 81001; 81025; 81050; 82607; 82728; 82746; 82948; 83036; 83540; 83550; 83690; 83735; 84156; 84443; 84466; 84484; 84702; 85025; 85610; 87086; 93005; 93306; 96361; 96365; 96374; 96375; 96376; 99285; A9270; C9113; G0378; G0379; J0360; J0696; J1815; J2270; J2405; J7030